=== PATIENT | male | born 1985 | race Hispanic/Latino ===

== ENCOUNTER 2018-07-25 07:19 | Day surgery (SDC) | payer BC ==
[2018-07-23 17:28] LABS: Absolute Lymphocytes (CBC) 2.3 K/uL (0.7-4.9); Absolute Monocytes 0.8 K/uL (0.1-1.3); Absolute Neutrophil 8.6 K/uL (1.8-8.0); Basophils % 0.5 % (0-1.3); Eosinophils % 3.1 % (0-4.4); MCV 92.8 fL (80-100); MPV 9.2 fL (7.6-11.3); Monocytes % 6.9 % (3.3-12.3); RBC Red Blood Cell Count 5.53 M/uL (4.33-5.43)
[2018-07-23 17:30] LABS: Hematocrit 52.3 % (39.6-49.0)
[2018-07-23 17:43] LABS: Albumin 4.1 g/dL (3.4-5.0); Bilirubin Direct 0.2 mg/dL (0-0.2); Bilirubin Total 0.7 mg/dL (0.2-1.0); Protein, Total 8.5 g/dL (6.4-8.2)
[2018-07-25] MEDS ORDERED: ROCURONIUM 50 MG/5 ML VIAL IV ONE (07:54)
[2018-07-25] MEDS ORDERED: LIDOCAINE 2% MPF 5 ML VIAL ONE (07:54)
[2018-07-25] MEDS ORDERED: MIDAZOLAM HCL 2 MG/2 ML INJ ONE (07:54)
[2018-07-25] MEDS ORDERED: PROPOFOL 200 MG/20 ML VIAL IV ONE (07:54)
[2018-07-25] MEDS ORDERED: ONDANSETRON HCL 40 MG/20 ML VIAL ONE (07:54)
[2018-07-25] MEDS ORDERED: FENTANYL CITR 100 MCG/2 ML ONE (07:54)
[2018-07-25] MEDS ORDERED: CEFOXITIN/SWI 1gm 1 GM/10 ML SYR ONE (08:03)
[2018-07-25] MEDS ORDERED: Ringers Lactate 1,000 ML IV ONE (08:03)
[2018-07-25] MEDS ORDERED: GLYCOPYRROLATE 0.2 MG/ML SYR ONE (09:23)
[2018-07-25] MEDS ORDERED: NEOSTIGMINE 1 MG/ML -5 ML SYRINGE ONE (09:23)
[2018-07-25] MEDS ORDERED: SODIUM CHLORIDE 0.9% 10ML INJ IV PRN (09:46)
[2018-07-25] MEDS ORDERED: ONDANSETRON 4 MG/2 ML VIAL IV PRN (09:46)
[2018-07-25] MEDS: MORPHINE 4 MG/ML SYR ONE ×2 (09:53→10:01)
[2018-07-25] MEDS ORDERED: MORPHINE 4 MG/ML SYR ONE (10:15)
[2018-07-25 10:30] VITALS: O2SAT 97
[2018-07-25] MEDS ORDERED: HYDROCODONE/APAP 5/325 MG TAB PO PRN (10:43)
--- NOTE | 2018-07-25 10:49 | P.BOP ---
Preoperative diagnosis: RUq pain, acute cholecystitis, symptomatic cholelithiasis, Postoperative diagnosis: hx of brain injury with neurological deficiencies, intrabd adhesions Primary procedure: Laparoscopic cholecystectomy Secondary procedure: Extensive lysis of adhesions Diesel Inspector: AYAN CUMMINGS (BULK STATION AGENT) Estimated blood loss: <20cc Specimen: gb Findings: acute cholecystitis, scholelithiasis, extensive intrabd adhesions Anesthesia: General Complications: None Drain(s): Other Transferred to: Recovery Room Condition: Good
[2018-07-25] MEDS: NA CHLORIDE 0.9% 1,000 ML IV SCH ×2 (11:03→17:47)
[2018-07-25] MEDS: CEFOXITIN/SWI 1gm 1 GM/10 ML SYR IV SCH ×2 (11:54→17:42)
[2018-07-25] MEDS ORDERED: INFLUENZA VACCINE (for 3y+) 0.5 ML DOSE IMVAC ONE (13:00)
[2018-07-25] MEDS: MORPHINE 2 MG/ML SYR IV PRN ×2 (15:17→21:18)
[2018-07-25 18:51] VITALS: BMI 27.2
[2018-07-26] MEDS: CEFOXITIN/SWI 1gm 1 GM/10 ML SYR IV SCH (00:38)
[2018-07-26] MEDS: MORPHINE 2 MG/ML SYR IV PRN ×2 (03:39→08:54)
[2018-07-26] MEDS: NA CHLORIDE 0.9% 1,000 ML IV SCH (03:40)
[2018-07-26 05:08] LABS: Absolute Lymphocytes (CBC) 1.9 K/uL (0.7-4.9); Absolute Monocytes 1.5 K/uL (0.1-1.3); Basophils % 0.3 % (0-1.3); Eosinophils % 0.8 % (0-4.4); Hematocrit 46.3 % (39.6-49.0); Lymphocytes % 12.9 % (15.3-44.8); MCH 32.6 pg (27.0-35.0); MPV 9.3 fL (7.6-11.3); Monocytes % 10.2 % (3.3-12.3); RBC Red Blood Cell Count 4.93 M/uL (4.33-5.43)
[2018-07-26 05:17] LABS: BUN Blood Urea Nitrogen 7 mg/dL (7-18); Bicarbonate 24 mmol/L (21-32); Glucose Level 99 mg/dL (74-106); Magnesium 1.8 mg/dL (1.8-2.4); Potassium 3.7 mmol/L (3.5-5.1); Sodium Level 140 mmol/L (136-145)
[2018-07-26] MEDS ORDERED: INFLUENZA VACCINE (for 3y+) 0.5 ML DOSE IMVAC ONE (08:00)
[2018-07-26] MEDS ORDERED: PANTOPRAZOLE 40 MG INJ IVP SCH (09:00)
--- NOTE | 2018-07-26 10:19 | P.DS ---
Discharge Date: 07/26/18 Disposition: ROUTINE DISCHARGE Discharge Condition: GOOD Vital Signs/Physical Exam: Temp Pulse Resp BP Pulse Ox 97.6 F 98 H 18 121/75 96 07/26/18 08:00 07/26/18 08:00 07/26/18 08:00 07/26/18 08:00 07/26/18 08:00 General: Alert, In no apparent distress, Cooperative HEENT: PERRLA, EOMI Neck: Supple Cardiovascular: No edema Gastrointestinal: Soft and benign Musculoskeletal: No erythema, No tenderness, No warmth Neurological: Normal affect Laboratory Data at Discharge: WBC 14.5 K/uL (4.3-10.9) H D 07/26/18 04:21 Hgb 16.1 g/dL (13.6-17.9) 07/26/18 04:21 Hct 46.3 % (39.6-49.0) 07/26/18 04:21 Plt Count 190 K/uL (152-406) D 07/26/18 04:21 Sodium 140 mmol/L (136-145) 07/26/18 04:21 Potassium 3.7 mmol/L (3.5-5.1) 07/26/18 04:21 BUN 7 mg/dL (7-18) 07/26/18 04:21 Creatinine 0.90 mg/dL (0.55-1.3) 07/26/18 04:21 Glucose 99 mg/dL (74-106) 07/26/18 04:21 Magnesium 1.8 mg/dL (1.8-2.4) 07/26/18 04:21 Total Bilirubin 0.7 mg/dL (0.2-1.0) 07/23/18 17:06 AST 13 U/L (15-37) L 07/23/18 17:06 ALT 27 U/L (12-78) 07/23/18 17:06 Alkaline Phosphatase 91 U/L (45-117) 07/23/18 17:06 Amylase 67 U/L (25-115) 07/23/18 17:06 Lipase 217 U/L (73-393) 07/23/18 17:06 Home Medications: Codeine/APAP [Tylenol W/Codeine #3 tab] 1 tab PO Q4HP PRN #20 tab 11/29/18 Sulfamethoxazole/Trimethoprim [Bactrim Ds Tablet] 1 each PO BID #10 tablet 07/26 New Medications: Codeine/APAP [Tylenol W/Codeine #3 tab] 1 tab PO Q4HP PRN #20 tab PRN Reason: Pain Sulfamethoxazole/Trimethoprim [Bactrim Ds Tablet] 1 each PO BID #10 tablet Patient Discharge Instructions: keep area dry for 24h then may remove dressoing and shower. Diet: AHA Activity: No lifting more than 10 lbs Followup: Kulwinder Bokoer MD [ACTIVE - CAN ADMIT] - 1 Week
[2018-07-26 12:47] VITALS: BP 107/76; TEMP 99.2
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
== END 2018-07-26 12:37 | disposition home or self-care (01) ==
LOC: OR 07:19 → 4TH 10:12 → OR 07-26 12:37
PROVIDERS: ATTEND Surgery
PROC: 0DNW4ZZ Release Peritoneum, Percutaneous Endoscopic Approach (ICD-10-PCS; 2018-07-25)
PROC: 0FT44ZZ Resection of Gallbladder, Percutaneous Endoscopic Approach (ICD-10-PCS; principal; 2018-07-25 08:15)
DX: K80.12 Calculus of gallbladder with acute and chronic cholecystitis without obstruction (principal); K66.0 Peritoneal adhesions (postprocedural) (postinfection); Z87.820 Personal history of traumatic brain injury
CPT/HCPCS: 36415; 80048; 80076; 82150; 83690; 83735; 85025; 88304; G0008; J2250; J2270; J2405; J2704; J2710; J3010; J7030; Q2035

== ENCOUNTER 2024-11-30 13:32 | Emergency (ER) | payer BC ==
[2024-11-30] MEDS ORDERED: KETOROLAC 30 MG/ML INJ ONE (14:33)
[2024-11-30] MEDS ORDERED: ONDANSETRON 4 MG/2 ML VIAL ONE (14:33)
[2024-11-30] MEDS ORDERED: FAMOTIDINE 20 MG/2 ML VIAL IV ONE (14:33)
[2024-11-30] MEDS ORDERED: NA CHLORIDE 0.9% 1,000 ML ONE (14:33)
[2024-11-30 16:04] LABS: Absolute Eosinophils 0.3 K/uL (0-0.5); Absolute Lymphocytes (CBC) 1.7 K/uL (0.7-4.9); Absolute Monocytes 0.6 K/uL (0.1-1.3); Absolute Neutrophil 8.2 K/uL (1.8-8.0); Basophils % 0.3 % (0-1.3); Eosinophils % 2.7 % (0-4.4); Hematocrit 49.9 % (39.6-49.0); Lymphocytes % 15.9 % (15.3-44.8); MCH 32.6 pg (27.0-35.0); MCV 90.6 fL (80-100); MPV 8.9 fL (7.6-11.3); Monocytes % 5.1 % (3.3-12.3); Nucleated Red Blood Cells % 0.1 % (0-0); Platelets 241 thou/uL (152-406); RBC Red Blood Cell Count 5.51 M/uL (4.33-5.43); Red Cell Distribution Width 13.1 % (12.1-15.2)
[2024-11-30 16:06] LABS: Albumin 3.8 g/dL (3.4-5.0); Albumin/Globulin Ratio 0.8 (1.1-1.8); Anion Gap 8.6 mEq/L (5.0-15.0); Bilirubin Total 0.9 mg/dL (0.2-1.0); Globulin 4.6 g/dL (2.3-3.5); Potassium 3.6 mEq/L (3.5-5.1); Protein, Total 8.4 g/dL (6.4-8.2)
--- NOTE | 2024-11-30 16:52 | RAD REPORT ---
EXAM: CT CHEST, ABDOMEN AND PELVIS WITHOUT CONTRAST CLINICAL INDICATION: chest pain, abd pain TECHNIQUE: CT chest, abdomen and pelvis was performed without contrast, as per department protocol. A xial, sagittal and coronal reconstructions were obtained. One or more of the following dose reduction techniques were used: Automated exposure control, adjustment of the mA and/or kV according to patient size, and/or iterative reconstruction. Unless otherwise specified, incidental findings do not require dedicated imaging follow-up. Examination is limited by the lack of intravenous contrast material. COMPARISON: 01/16/2024 FINDINGS: LUNGS: Mild linear atelectasis is present in both lung bases. Elevation of the right hemidiaphragmati c leaflet noted, chronic. PLEURA: No pleural effusion. No pneumothorax. MEDIASTINUM AND LYMPH NODES: No mediastinal mass or fluid collection. Normal size mediastinal, hilar, and axillary lymph nodes. OSSEOUS STRUCTURES AND CHEST WALL: Intact. LIVER: Normal in size and contour. No focal lesion or biliary dilatation. Cholecystectomy clips. PANCREAS: No mass, ductal dilation, or radha-pancreatic fluid. SPLEEN: Normal size. No focal lesion. ADRENALS: Normal; no mass. KIDNEYS: Normal size and contour. No hydronephrosis. URINARY BLADDER: Normal contour. GASTROINTESTINAL TRACT: No bowel obstruction, free air, significant free fluid or abscess. APPENDIX: Normal appendix. LYMPH NODES: No lymphadenopathy. MUSCULOSKELETAL: No acute or suspicious osseous abnormality. IMPRESSION: No acute findings seen in the chest, abdomen or pelvis. Chronic elevation right hemidiaphragm.
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
[2024-11-30 17:48] VITALS: BP 116/93; TEMP 97.7; O2SAT 95
== END 2024-11-30 17:44 | disposition home or self-care (01) ==
LOC: ER 13:32
DX: R10.12 Left upper quadrant pain (principal); R07.9 Chest pain, unspecified
CPT/HCPCS: 85025; 36415; 83690; 80053; 71250; 74176; 99283; J2405; J7030